=== PATIENT | female | born 1935 | race Caucasian/White ===

== ENCOUNTER 2016-10-11 13:24 | Emergency (ER) | payer OTHER ==
[~2016-10-11] VITALS: Ht 158.8 cm; Wt 58.2 kg
[2016-10-11 13:32] VITALS: BP 157/92; PULSE 66; RESP 15; O2SAT 95
--- NOTE | 2016-10-11 15:52 | ED.REPORT ---
HPI-Hand Prob/Inj Date of Service Oct 11, 2016 ED Provider: Cheryl Duffy Nursing Notes Stated Complaint: LACERATION TO BACK OF RIGHT HAND BY DOG Chief Complaint: Extremity Trauma Nursing Notes Reviewed: Yes Allergies: Coded Allergies: No Known Allergies (Unverified , 10/11/16) Scheduled Amoxicillin/Clav K 875-125 mg (Amoxicillin/Clav K 875-125 mg) 875 Mg Tab 1 TABLET PO BID General Time Seen by Provider: 15:30 Chief Complaint Hand injury right Dog bite to right hand, large skin tear. Was pts own dog, trying to take a magic marker away from dog. Hx Obtained From: Patient Arrived By: Walk-in Onset Occurred: Just prior to arrival Context of Onset: Home injury Symptom Duration: Since onset Progression Since Onset: Unchanged Caused by: Accidental Location: Right Hand: : Dorsal surface Quality: Same as prior Severity: Current: No pain currently Severity: Maximum: Mild Associated with: Reports: Swollen extremity, Denies: Fever, Joint swelling, Numbness, Rash, Weak extremity Pertinent Negative: Pt denies other symptoms Exacerbated by: Movement Relieved by: Rest Related History: Reports: Rheumatoid arthritis Immunizations: Tetanus not up to date Recent Healthcare: No recent doctor visit Similar Sx Previous: No Past Medical History Past Medical History RA Review of Systems Basic Review of Systems Eyes: Vision NL, No discharge ENT: Hearing NL, No pain, No nasal congestion, No pharyngeal pain Respiratory: No shortness of breath, No cough, No wheeze Cardiovascular: No chest pain, No dyspnea on exertion, No orthopnea, No parox noct dyspnea, No palpitations GI: No abdominal pain, No anorexia, No nausea, No vomiting : No dysuria, No frequency Hematologic: No bleeding, No bruising Endocrine: No cold intolerance, No heat intolerance, No weight gain, No weight loss Allergy / Immune: No allergy Psychiatric: Normal thought content Constitutional: Denies: Fatigue, Fever Musculoskeletal: Reports: Extremity pain, Extremity swelling, Denies: Joint pain, Joint swelling Skin: Reports Swelling Neurologic: Denies: Abnormal movement, Confusion, Headache Complete sys rev & neg: except as marked. Physical Exam Initial Vital Signs Vital Signs (First) Date Time Temp Pulse Resp B/P Pulse Ox O2 Delivery O2 Flow Rate FiO2 10/11/16 13:32 36.2 66 15 157/92 95 Room Air Initial VS: Reviewed General/Constitutional: Well-developed, Well-nourished Head / Eyes: Atraumatic, Normocephalic, PERRL ENT: Mucous membranes moist, Conjunctiva normal, No scleral icterus Neck: Supple, Non-tender, Full range of motion Lymphatic: No lymphadenopathy Extremities: Vascular intact, Neuro intact, No swelling, No tenderness Skin: Warm, Dry, No cyanosis Neurologic: Alert, Oriented, Nonfocal Psychiatric: Mood/affect normal, Behavior normal, Normal thought content Wrist / Hand: Full range of motion, No deformity, Neurologic intact, Vascular intact, No ligamentous injury, Tendon function NL Right Hand: Positive: Swelling present... (Moderate), Negative: Deformity present, Erythema present, Neuro deficit present..., ROM reduced, Tendon injury extensor, Warmth present Trauma / Burn / Environmental: Positive: Laceration (skin tear) Procedures Laceration Management Procedure Performed by: Allied health pract Consent / Setup / Site Prep: Consent from patient, Time-out performed, Hand hygiene observed, Stand sterile technique Wound Length: 8 cm Wound Preparation: Normal saline Foreign Body Explore / Removal: Explored for foreign body (none seen) Repair Skin: ___ O (steri strips) Closure Layers: 1 Post-Procedure / Complications: Antibiotic oint applied, Dressing applied, No complications, Condition improved, Tolerated procedure well, Patient stable Discharge & Departure Primary Impression: Skin tear of hand without complication Additional Impression: Dog bite, hand Disposition: Home Discharge Condition All VS Reviewed: Yes Patient Instructions: Acute Wound Care (ED), Animal Bite (ED) Additional Instructions: Your wound was closed with Steri-Strips today because your skin is too thin for stitches. I am giving an antibiotic to prevent infection. Watch for signs of infection such as redness, pain, swelling, or pus. Follow up with your regular doctor as needed or return to the urgent care for any other concerns. Referrals: NOPCP (PCP) EDSupervising Provider for APC: Kevon Garrison MD, Lora L ARNP Oct 11, 2016 15:52
[2016-10-11] MEDS ORDERED: TdaP Vaccine 0.5 mL Inj IM ONE (15:55)
[2016-10-11] MEDS ORDERED: AGM875T PO (15:56)
== END 2016-10-11 15:57 | disposition home or self-care (01) ==
LOC: SED 13:24
DX: S61.411A Laceration without foreign body of right hand, initial encounter (principal); W54.0XXA Bitten by dog, initial encounter; Y93.89 Activity, other specified; Y92.9 Unspecified place or not applicable; Y99.8 Other external cause status; Z23 Encounter for immunization